=== PATIENT | male | born 1975 | race Caucasian/White ===

== ENCOUNTER → 2019-10-23 | Outpatient (CLI) | payer OTHER | LOC: M.MRI 11:30 | PROVIDERS: ATTEND Orthopaedic Surgery | DX: S83.207A Unspecified tear of unspecified meniscus, current injury, left knee, initial encounter (principal); M25.462 Effusion, left knee; M17.12 Unilateral primary osteoarthritis, left knee; X58.XXXA Exposure to other specified factors, initial encounter; Y93.89 Activity, other specified; Y92.89 Other specified places as the place of occurrence of the external cause; Y99.8 Other external cause status ==

== ENCOUNTER 2019-11-11 09:01 | Inpatient (IN) | payer OTHER ==
[2019-11-04 10:43] LABS: HEMATOCRIT 39.4 % (42.0-52.0); HEMOGLOBIN 13.9 gm/dL (14.0-18.0); MCHC 35.2 g/dL (28.0-37.0); MCV 90.8 fL (80.0-100.0); MPV 8.2 fl. (7.2-11.1); RBC 4.34 mil/uL (4.50-6.00); RDW-CV 12.5 % (10.5-14.5); WBC 8.4 thou/uL (4.0-11.0)
[2019-11-04 10:54] LABS: INR 1.1; PROTIME 11.4 Seconds (9.20-11.50)
[2019-11-04 11:01] LABS: ALBUMIN 3.7 g/dL (3.4-5.0); CALCIUM 7.8 mg/dL (8.5-10.1); POTASSIUM 4.2 mmol/L (3.5-5.1); TOTAL BILIRUBIN 0.5 mg/dL (<0.1-1.0); TOTAL PROTEIN 7.5 g/dL (6.4-8.2)
[2019-11-04 11:12] LABS: URINE BILIRUBIN NEGATIVE (Negative); URINE BLOOD NEGATIVE (Negative); URINE CLARITY CLEAR; URINE COLOR YELLOW; URINE GLUCOSE-RANDOM NEGATIVE (Negative); URINE KETONES NEGATIVE (Negative); URINE LEUKOCYTES-REFLEX NEGATIVE (Negative); URINE NITRITE-REFLEX NEGATIVE (Negative); URINE PROTEIN NEGATIVE (Negative); URINE SPECIFIC GRAVITY <= 1.005 (1.005-1.030); URINE UROBILINOGEN 0.2 E.U./dl (0.2-1.0)
--- NOTE | 2019-11-04 17:15 | EKG ---
[place] [address] ELECTROCARDIOGRAM REPORT Name: GILLIAN WATKINS Room: PRE IN [facility]#: [id number] Admission: Attend Phys: Moe Villavicencio Discharge: Date of : 71 Date of Service: 11/04/19 1111 Report #: [id number] THIS REPORT FOR: //name// [facility] Test Date: 2019-11-04 Test Time: 11:11:53 Pat Name: GILLIANSuellen WATKINS Department: Room: Gender: Rehabilitation Specialist: : 1975 Requested By: Paul Sierra Order Number: [id number] MARIN: Mikhail Yanez Measurements Intervals [place] Rate: 67 P: 51 IN: 151 QRS: 60 QRSD: 98 T: 33 QT: 402 QTc: 425 Interpretive Statements Sinus rhythm No previous ECG available for comparison Electronically Signed On 11-04-2019 17:15:13 CDT by Mikhail Yanez [email or web address] <ELECTRONICALLY SIGNED> By: Mikhail Yanez MD, [facility] 11/04/19 1715 1111 1111 Mikhail Yanez MD, FACC /EPI
[~2019-11-11] VITALS: Ht 193 cm; Wt 111.1 kg
--- NOTE | ~2019-11-11 | OP ---
[facility] [address] [place] [address] OPERATIVE REPORT Name: GILLIAN WATKINS Room: [address] IN .R.#: [id number] Admission: 11/11/19 Attend Phys: Peyton Cisneros Discharge: Date of : 71 Report #: [id number] THIS REPORT FOR: //name// cc: NICOLAS OLVERA APRN Physician not on staff ~ CC: NICOLAS OLVERA Physician staff Paul Villavicencio DATE OF SERVICE: 11/11/2019 PREOPERATIVE DIAGNOSIS: Left knee osteoarthritis. POSTOPERATIVE DIAGNOSIS: Left knee osteoarthritis. PROCEDURE: Left total knee arthroplasty. SURGEON: Paul Sierra II, DO. PAINTER SHIPYARD: ELENA Calle. ANESTHESIA: General endotracheal. ESTIMATED BLOOD LOSS: 50 mL. ANTIBIOTICS: Ancef preoperatively. DRAINS: Medium Hemovac. COMPLICATIONS: None. CONDITION OF THE PATIENT: Stable to recovery room. IMPLANTS: Listed in operative record and progress note. BRIEF HISTORY: The patient was seen in the preoperative area. Preoperative H and P was performed. Site was marked, questions were answered. Risks and benefits were discussed with the patient in detail about surgery. The patient wished to proceed, assuming all risks. DESCRIPTION OF PROCEDURE: The patient was taken to the operative suite and placed supine on the operative table, given appropriate anesthesia. A well-padded tourniquet applied to upper thigh, which was inflated to 300 mmHg after gravity exsanguination. The operative knee was sterilely prepped and draped. Surgery began by midline incision. [place] [address] OPERATIVE REPORT Name: ROLANDGILLIAN M Room: [address] IN [facility].#: [id number] Admission: 11/11/19 Attend Phys: Peyton Cisneros Discharge: Date of : 71 Report #: [id number] subcutaneous tissues. A medial parapatellar arthrotomy was performed and carried down to bone. Patella was then everted and excess soft tissue removed around the femur. Femoral cutting block was then applied, checked with drop miriam for rotational alignment, pinned in appropriate position and appropriate cuts were made. A 4-in-1 cutting block was then applied, checked for rotational alignment, pinned in appropriate position and appropriate cuts were made. The tibia was then exposed. Excess meniscus was removed. Retractor was placed on collateral ligament. The tibial cutting block was then applied, pinned in appropriate position, checked with drop miriam for rotational alignment and slope and appropriate cut was made. Tibial bone was removed. The tibial base plate was then applied, checked for rotational alignment with drop miriam and pinned in appropriate position. Femur was then applied and box cut was reamed. This was then trialed with appropriate spacer, which showed excellent fit and fill and excellent stability of the knee through all range of motion. The patella was reamed in appropriate fashion and sized to appropriate size. Three peg holes were drilled and it was then trialed and it showed excellent flexion, extension, excellent tracking of the patella within the groove. These trials were removed. The tibia was punched in appropriate fashion. Bone ends were cleansed with Pulsavac irrigation and cement was mixed and applied to final implants. These were then malleted into position and held the knee in extension and compressed to allow cement to cure. After it cured, excess cement was removed using [place] and osteotome. Wound was then copiously irrigated and the final spacer was then malleted into position. Tourniquet was deflated. Hemostasis was obtained with electrocautery. Pain cocktail was injected. PRP gel sprayed throughout the internal aspects of the knee. Medium Hemovac drain was then applied. Capsule was closed with 2 FiberWire and 1 Vicryl in [id number] fashion. Skin was closed with 2-0 Vicryl and running 3-0 Monocryl. Dermabond and sterile dressing applied. Pipe wrap and PolarCare applied. The patient transported to recovery room in stable condition. Counts were correct throughout the procedure. By: [id number] Elida Sierra II DO /nt
[~2019-11-11 09:01] MED LIST: ASA81BEC PO; BYSTOLIC20 MG PO; LIPITOR 40 MG T40 M1 PO; OMEPRAZOLE 20 M20 M1 PO
[2019-11-11] MEDS ORDERED: MAPAP500 MG PO (09:29)
[2019-11-11 10:00] VITALS: BP 137/77
[2019-11-11 18:00] VITALS: BP 115/65
[2019-11-11 19:51] VITALS: BP 125/75
[2019-11-12] VITALS: BP 134/77
[2019-11-12 04:00] VITALS: BP 135/69
[2019-11-12 04:33] LABS: HEMATOCRIT 34.2 % (42.0-52.0); HEMOGLOBIN 11.9 gm/dL (14.0-18.0)
[2019-11-12 07:15] VITALS: BP 131/71
[2019-11-12] MEDS ORDERED: COLACE100 MG PO (09:58)
[2019-11-12] MEDS ORDERED: PERCOCET 5-3251 EACH PO (09:59)
[2019-11-12] MEDS ORDERED: XARELTO10 M1 PO (09:59)
[2019-11-12 10:01] VITALS: BP 131/71
[2019-11-12 11:54] VITALS: BP 121/70
== END 2019-11-12 15:36 | disposition home health service (06) | DRG 470 ==
LOC: M.TBA 09:01 → M.ORTHSURG 09:01 → M.PRE 09:19 → M.ORTHSURG 18:00
PROVIDERS: Orthopaedic Surgery; ADMIT Internal Medicine; ATTEND Internal Medicine
PROC: 0SRD0J9 Replacement of Left Knee Joint with Synthetic Substitute, Cemented, Open Approach (ICD-10-PCS; principal; 2019-11-11)
DX: M17.12 Unilateral primary osteoarthritis, left knee (principal); G47.00 Insomnia, unspecified; I10 Essential (primary) hypertension; E78.5 Hyperlipidemia, unspecified; G62.9 Polyneuropathy, unspecified; K21.9 Gastro-esophageal reflux disease without esophagitis; E78.00 Pure hypercholesterolemia, unspecified; Z79.899 Other long term (current) drug therapy; Z90.49 Acquired absence of other specified parts of digestive tract; Z79.01 Long term (current) use of anticoagulants; Z79.82 Long term (current) use of aspirin; Z87.891 Personal history of nicotine dependence